=== PATIENT | male | born 1935 | race Caucasian/White ===

== ENCOUNTER 2018-02-24 17:26 | Inpatient (IN) ==
[2018-02-24] MEDS ORDERED: SODIUM CHLORIDE 0.9% 500 ML IV STA (18:12)
[2018-02-24 18:29] LABS: Basophils % 0.3 % (0.0-0.8); Eosinophils % 0.1 % (0.00-10.9); Hematocrit 32.2 VOL% (42.0-52.0); Hemoglobin 10.3 GM/DL (14.0-18.0); Immature Granulocytes % 0.5 %; Immature Granulocytes Absolute 0.07 #; Lymphocytes # 0.5 10*3/uL (1.4-4.0); Lymphocytes % 3.6 % (21.2-54.2); Mean Corpuscular Hemoglobin 31 PG (27-34); Mean Corpuscular Volume 97.9 FL (87-102); Mean Platelet Volume 10.1 FL (9.6-12.0); Monocytes # 0.5 10*3/uL (0.11-0.8); Neutrophils # 11.9 10*3/uL (1.4-7.4); Neutrophils % 91.5 % (38.7-73.9); Platelet Count 275 T/CUMM (130-400); Red Blood Count 3.29 MC/CUMM (3.8-5.5); Red Cell Distribution Width 13.9 % (9.3-17.3)
[2018-02-24 18:45] LABS: INR 1.1; PT Patient Result 11.1 SECS
[2018-02-24 18:58] LABS: Alanine Aminotransferase 11 U/L (16-61); Albumin 3.5 G/DL (3.4-5.0); Alkaline Phosphatase 79 U/L (45-117); Aspartate Amino Transferase 26 U/L (0-37); Blood Urea Nitrogen 36 MG/DL (7-18); Calcium 8.9 MG/DL (8.5-10.1); Glucose 121 MG/DL (74-106); Osmolality,Calculated 291.1 MOS/KG (273-304); Potassium 4.5 MMOL/L (3.5-5.1); Sodium 142 MMOL/L (136-145); Total Protein 7.1 G/DL (6.4-8.3); Troponin I Only < 0.015 NG/ML (0.00-0.045)
[2018-02-24] MEDS ORDERED: MAGNESIUM SULF RIDER 2 GM in PREMIX 1 EACH IV STA (19:04)
[2018-02-24 19:08] LABS: Apearance,Urine CLOUDY (Clear); Bacteria,Urine Moderate /HPF (Few); Bilirubin,Urine Negative (Negative); Blood, Urine Moderate mg/dL (Negative); Glucose,Urine (UA) Negative (Negative); Ketones,Urine 20 mg/dL (Negative); Nitrite,Urine Negative (Negative); Protein,Urine 100 MG/DL; RBC,Urine 14 /HPF (0-4); Urine Color Yellow (Yellow); Urine Specific Gravity 1.016 (1.001-1.035); WBC,Urine 704 /HPF (0-6)
[2018-02-24] MEDS ORDERED: cefTRIAXone 1,000 MG in SODIUM CHLORIDE 0.9% 100 ML IV STA (19:12)
[2018-02-24] MEDS ORDERED: MAGNESIUM SULF RIDER 50 ML IV ONE (19:13)
[2018-02-24 19:22] LABS: Ammonia 13 UMOL/L (11-32)
[2018-02-24] MEDS ORDERED: cefTRIAXone 1,000 MG VIAL ONE (19:52)
[2018-02-24] MEDS ORDERED: ONDANSETRON 4 MG/2 ML VIAL IV PRN (20:24)
[2018-02-24] MEDS ORDERED: ACETAMINOPHEN 325 MG TABLET PO PRN (20:24)
[2018-02-24] MEDS ORDERED: GLUCAGON 1 MG VIAL IM PRN (20:24)
[2018-02-24] MEDS ORDERED: DEXTROSE 50% 25 GM/50 ML VIAL IV PRN (20:24)
[2018-02-24] MEDS ORDERED: ZIPRASIDONE 20 MG/1 ML VIAL IM ONE (20:29)
[2018-02-24 21:42] LABS: Anisocytosis 1+; Band Neutrophils 14 % (0-10); Eosinophils 1 % (0-10); Lymphocytes 5 % (20-55); Poikilocytosis 1+; Segmented Neutrophils 76 % (50-85); Total Cells Counted 100
[2018-02-24] MEDS: SODIUM CHLORIDE 0.45% 1,000 ML IV SCH (22:30)
[2018-02-24] MEDS: INSULIN REGULAR 100 UNIT/ML SUBCUT SCH (22:37)
[2018-02-24] MEDS: ENOXAPARIN 40 MG/0.4 ML SYRINGE SUBCUT SCH (22:45)
[2018-02-25] MEDS ORDERED: HALOPERIDOL 5 MG/ML AMP IV ONE (02:30)
[2018-02-25] MEDS ORDERED: ZIPRASIDONE 20 MG/1 ML VIAL IM PRN (03:00)
[2018-02-25 05:46] LABS: Basophils % 0.3 % (0.0-0.8); Hemoglobin 9.1 GM/DL (14.0-18.0); Immature Granulocytes % 0.3 %; Immature Granulocytes Absolute 0.02 #; Lymphocytes # 0.5 10*3/uL (1.4-4.0); Lymphocytes % 7.1 % (21.2-54.2); Mean Corpuscular HGB Conc 32.5 GM/DL (32-36); Mean Corpuscular Hemoglobin 31 PG (27-34); Mean Corpuscular Volume 94.9 FL (87-102); Mean Platelet Volume 10.6 FL (9.6-12.0); Monocytes # 0.4 10*3/uL (0.11-0.8); Monocytes % 6.1 % (1.7-12.7); Neutrophils # 6.2 10*3/uL (1.4-7.4); Neutrophils % 86.2 % (38.7-73.9); Platelet Count 258 T/CUMM (130-400); Red Blood Count 2.95 MC/CUMM (3.8-5.5); White Blood Count 7.2 T/CUMM (4-12)
[2018-02-25] MEDS: SODIUM CHLORIDE 0.45% 1,000 ML IV SCH ×3 (06:03→22:12)
[2018-02-25 06:18] LABS: Calcium 8.2 MG/DL (8.5-10.1); Potassium 3.9 MMOL/L (3.5-5.1)
[2018-02-25] MEDS ORDERED: NITROGLYCERIN SL 0.4 MG TABLET SL PRN (07:55)
[2018-02-25] MEDS: CARBIDOPA/LEVODOPA 25-100 MG TABLET PO SCH ×3 (08:58→17:59)
[2018-02-25] MEDS: INSULIN REGULAR 100 UNIT/ML SUBCUT SCH ×4 (08:58→21:00)
[2018-02-25] MEDS: CHOLECALCIFEROL 1,000 UNIT TABLET PO SCH (08:59)
[2018-02-25] MEDS: ASPIRIN EC 81 MG TABLET PO SCH (08:59)
[2018-02-25] MEDS: MEMANTINE 10 MG TABLET PO SCH ×2 (08:59→20:54)
[2018-02-25] MEDS: PANTOPRAZOLE 40 MG TABLET PO SCH ×2 (08:59→20:54)
[2018-02-25] MEDS: FINASTERIDE 5 MG TABLET PO SCH (08:59)
[2018-02-25] MEDS: amLODIPine 5 MG TABLET PO SCH ×2 (08:59→20:54)
[2018-02-25] MEDS: VANCOMYCIN INJ 1,000 MG in SODIUM CHLORIDE 0.9% 250 ML IV SCH (12:30)
[2018-02-25] MEDS ORDERED: cefTRIAXone 1,000 MG in SYRINGE 1 EACH IV SCH (20:00)
[2018-02-25] MEDS: DONEPEZIL 10 MG TABLET PO SCH (20:54)
[2018-02-25] MEDS: MELATONIN 3 MG TABLET PO SCH (20:54)
[2018-02-25] MEDS: ATORVASTATIN 20 MG TABLET PO SCH (20:54)
[2018-02-25] MEDS: LISINOPRIL 10 MG TABLET PO SCH (20:54)
[2018-02-25] MEDS: ENOXAPARIN 40 MG/0.4 ML SYRINGE SUBCUT SCH (20:59)
[2018-02-26 06:11] LABS: Basophils % 0.4 % (0.0-0.8); Eosinophils # 0.1 10*3/uL (0.0-0.87); Hematocrit 27.7 VOL% (42.0-52.0); Hemoglobin 8.9 GM/DL (14.0-18.0); Immature Granulocytes % 0.6 %; Immature Granulocytes Absolute 0.04 #; Lymphocytes % 14.2 % (21.2-54.2); Mean Corpuscular HGB Conc 32.1 GM/DL (32-36); Mean Corpuscular Hemoglobin 31 PG (27-34); Mean Corpuscular Volume 95.5 FL (87-102); Mean Platelet Volume 9.9 FL (9.6-12.0); Monocytes # 0.8 10*3/uL (0.11-0.8); Monocytes % 12.3 % (1.7-12.7); Neutrophils # 4.9 10*3/uL (1.4-7.4); Neutrophils % 71.5 % (38.7-73.9); Platelet Count 209 T/CUMM (130-400); Red Cell Distribution Width 13.6 % (9.3-17.3); White Blood Count 6.8 T/CUMM (4-12)
[2018-02-26 06:36] LABS: Calcium 8.1 MG/DL (8.5-10.1); Osmolality,Calculated 283.4 MOS/KG (273-304); Potassium 4.6 MMOL/L (3.5-5.1)
[2018-02-26 06:37] LABS: Band Neutrophils 19 % (0-10); Lymphocytes 12 % (20-55); Segmented Neutrophils 66 % (50-85); Total Cells Counted 100
[2018-02-26 06:38] LABS: Acanthocytes 1+; Anisocytosis 1+; Poikilocytosis 2+
[2018-02-26] MEDS: INSULIN REGULAR 100 UNIT/ML SUBCUT SCH ×4 (07:33→21:38)
[2018-02-26] MEDS: SODIUM CHLORIDE 0.45% 1,000 ML IV SCH (08:12)
[2018-02-26] MEDS: PANTOPRAZOLE 40 MG TABLET PO SCH ×2 (09:41→21:38)
[2018-02-26] MEDS: amLODIPine 5 MG TABLET PO SCH ×2 (09:41→21:38)
[2018-02-26] MEDS: CARBIDOPA/LEVODOPA 25-100 MG TABLET PO SCH ×3 (09:41→17:48)
[2018-02-26] MEDS: ASPIRIN EC 81 MG TABLET PO SCH (09:41)
[2018-02-26] MEDS: CHOLECALCIFEROL 1,000 UNIT TABLET PO SCH (09:41)
[2018-02-26] MEDS: FINASTERIDE 5 MG TABLET PO SCH (09:42)
[2018-02-26] MEDS: MEMANTINE 10 MG TABLET PO SCH ×2 (09:42→21:38)
[2018-02-26] MEDS: VANCOMYCIN INJ 1,000 MG in SODIUM CHLORIDE 0.9% 250 ML IV SCH (11:48)
[2018-02-26] MEDS: MELATONIN 3 MG TABLET PO SCH (21:37)
[2018-02-26] MEDS: LISINOPRIL 10 MG TABLET PO SCH (21:38)
[2018-02-26] MEDS: ENOXAPARIN 40 MG/0.4 ML SYRINGE SUBCUT SCH (21:38)
[2018-02-26] MEDS: ATORVASTATIN 20 MG TABLET PO SCH (21:38)
[2018-02-26] MEDS: DONEPEZIL 10 MG TABLET PO SCH (21:41)
[2018-02-27] MEDS: VANCOMYCIN INJ 1,000 MG in SODIUM CHLORIDE 0.9% 250 ML IV SCH (05:11)
[2018-02-27 06:24] LABS: Basophils % 0.6 % (0.0-0.8); Eosinophils # 0.2 10*3/uL (0.0-0.87); Eosinophils % 3.1 % (0.00-10.9); Hematocrit 27.8 VOL% (42.0-52.0); Immature Granulocytes % 0.2 %; Immature Granulocytes Absolute 0.01 #; Lymphocytes % 19.9 % (21.2-54.2); Mean Corpuscular HGB Conc 32.4 GM/DL (32-36); Mean Corpuscular Hemoglobin 31 PG (27-34); Mean Corpuscular Volume 94.6 FL (87-102); Mean Platelet Volume 10.7 FL (9.6-12.0); Monocytes # 0.7 10*3/uL (0.11-0.8); Monocytes % 12.7 % (1.7-12.7); Neutrophils # 3.3 10*3/uL (1.4-7.4); Neutrophils % 63.5 % (38.7-73.9); Platelet Count 229 T/CUMM (130-400); Red Blood Count 2.94 MC/CUMM (3.8-5.5); Red Cell Distribution Width 13.5 % (9.3-17.3); White Blood Count 5.1 T/CUMM (4-12)
[2018-02-27 06:27] LABS: Calcium 8.2 MG/DL (8.5-10.1); Osmolality,Calculated 286.1 MOS/KG (273-304); Potassium 3.6 MMOL/L (3.5-5.1)
[2018-02-27] MEDS: INSULIN REGULAR 100 UNIT/ML SUBCUT SCH ×4 (07:58→20:27)
[2018-02-27] MEDS: PANTOPRAZOLE 40 MG TABLET PO SCH ×2 (09:16→20:29)
[2018-02-27] MEDS: amLODIPine 5 MG TABLET PO SCH ×2 (09:16→20:29)
[2018-02-27] MEDS: MEMANTINE 10 MG TABLET PO SCH ×2 (09:16→20:29)
[2018-02-27] MEDS: ASPIRIN EC 81 MG TABLET PO SCH (09:16)
[2018-02-27] MEDS: CARBIDOPA/LEVODOPA 25-100 MG TABLET PO SCH ×3 (09:16→18:06)
[2018-02-27] MEDS: CHOLECALCIFEROL 1,000 UNIT TABLET PO SCH (09:16)
[2018-02-27] MEDS: FINASTERIDE 5 MG TABLET PO SCH (09:16)
[2018-02-27] MEDS: DONEPEZIL 10 MG TABLET PO SCH (20:29)
[2018-02-27] MEDS: LISINOPRIL 10 MG TABLET PO SCH (20:29)
[2018-02-27] MEDS: ENOXAPARIN 40 MG/0.4 ML SYRINGE SUBCUT SCH (20:29)
[2018-02-27] MEDS: MELATONIN 3 MG TABLET PO SCH (20:29)
[2018-02-27] MEDS: ATORVASTATIN 20 MG TABLET PO SCH (20:29)
[2018-02-28] MEDS: VANCOMYCIN INJ 1,000 MG in SODIUM CHLORIDE 0.9% 250 ML IV SCH ×2 (00:29→17:38)
[2018-02-28 06:17] LABS: Calcium 8.2 MG/DL (8.5-10.1); Osmolality,Calculated 294.4 MOS/KG (273-304); Potassium 3.6 MMOL/L (3.5-5.1)
[2018-02-28] MEDS: INSULIN REGULAR 100 UNIT/ML SUBCUT SCH ×4 (07:51→20:50)
[2018-02-28] MEDS: amLODIPine 5 MG TABLET PO SCH ×2 (09:11→20:50)
[2018-02-28] MEDS: CARBIDOPA/LEVODOPA 25-100 MG TABLET PO SCH ×3 (09:11→16:46)
[2018-02-28] MEDS: CHOLECALCIFEROL 1,000 UNIT TABLET PO SCH (09:11)
[2018-02-28] MEDS: FINASTERIDE 5 MG TABLET PO SCH (09:12)
[2018-02-28] MEDS: ASPIRIN EC 81 MG TABLET PO SCH (09:12)
[2018-02-28] MEDS: PANTOPRAZOLE 40 MG TABLET PO SCH ×2 (09:12→20:49)
[2018-02-28] MEDS: MEMANTINE 10 MG TABLET PO SCH ×2 (09:12→20:49)
[2018-02-28] MEDS ORDERED: ZIPRASIDONE 20 MG/1 ML VIAL IM PRN (15:43)
[2018-02-28] MEDS: DONEPEZIL 10 MG TABLET PO SCH (20:49)
[2018-02-28] MEDS: ENOXAPARIN 40 MG/0.4 ML SYRINGE SUBCUT SCH (20:49)
[2018-02-28] MEDS: MELATONIN 3 MG TABLET PO SCH (20:49)
[2018-02-28] MEDS: ATORVASTATIN 20 MG TABLET PO SCH (20:49)
[2018-02-28] MEDS: LISINOPRIL 10 MG TABLET PO SCH (20:50)
[2018-03-01 04:26] LABS: Basophils % 0.7 % (0.0-0.8); Eosinophils # 0.2 10*3/uL (0.0-0.87); Hematocrit 25.7 VOL% (42.0-52.0); Hemoglobin 8.4 GM/DL (14.0-18.0); Lymphocytes # 1.4 10*3/uL (1.4-4.0); Mean Corpuscular HGB Conc 32.7 GM/DL (32-36); Mean Corpuscular Hemoglobin 31 PG (27-34); Mean Corpuscular Volume 95.2 FL (87-102); Mean Platelet Volume 10.6 FL (9.6-12.0); Monocytes # 0.6 10*3/uL (0.11-0.8); Monocytes % 12.8 % (1.7-12.7); Neutrophils # 2.3 10*3/uL (1.4-7.4); Neutrophils % 51.5 % (38.7-73.9); Platelet Count 250 T/CUMM (130-400); Red Cell Distribution Width 13.6 % (9.3-17.3); White Blood Count 4.5 T/CUMM (4-12)
[2018-03-01 04:58] LABS: Calcium 7.9 MG/DL (8.5-10.1); Osmolality,Calculated 300.1 MOS/KG (273-304); Potassium 3.5 MMOL/L (3.5-5.1)
[2018-03-01] MEDS: INSULIN REGULAR 100 UNIT/ML SUBCUT SCH ×4 (08:56→20:55)
[2018-03-01] MEDS: CHOLECALCIFEROL 1,000 UNIT TABLET PO SCH (10:31)
[2018-03-01] MEDS: ASPIRIN EC 81 MG TABLET PO SCH (10:31)
[2018-03-01] MEDS: amLODIPine 5 MG TABLET PO SCH ×2 (10:31→20:54)
[2018-03-01] MEDS: CARBIDOPA/LEVODOPA 25-100 MG TABLET PO SCH ×3 (10:31→18:43)
[2018-03-01] MEDS: MEMANTINE 10 MG TABLET PO SCH ×2 (10:31→20:54)
[2018-03-01] MEDS: FINASTERIDE 5 MG TABLET PO SCH (10:31)
[2018-03-01] MEDS: PANTOPRAZOLE 40 MG TABLET PO SCH ×2 (10:31→20:54)
[2018-03-01] MEDS: SODIUM CHLOR 0.45% KCL 20 MEQ 20 MEQ/1,000 ML BAG IV SCH (11:00)
[2018-03-01] MEDS: VANCOMYCIN INJ 1,000 MG in SODIUM CHLORIDE 0.9% 250 ML IV SCH (15:27)
[2018-03-01] MEDS: ENOXAPARIN 40 MG/0.4 ML SYRINGE SUBCUT SCH (20:54)
[2018-03-01] MEDS: DONEPEZIL 10 MG TABLET PO SCH (20:54)
[2018-03-01] MEDS: MELATONIN 3 MG TABLET PO SCH (20:54)
[2018-03-01] MEDS: LISINOPRIL 10 MG TABLET PO SCH (20:54)
[2018-03-01] MEDS: ATORVASTATIN 20 MG TABLET PO SCH (20:54)
[2018-03-02 06:02] LABS: Basophils % 0.4 % (0.0-0.8); Eosinophils # 0.1 10*3/uL (0.0-0.87); Eosinophils % 2.9 % (0.00-10.9); Hemoglobin 8.3 GM/DL (14.0-18.0); Immature Granulocytes % 0.6 %; Immature Granulocytes Absolute 0.03 #; Lymphocytes # 1.4 10*3/uL (1.4-4.0); Lymphocytes % 29.3 % (21.2-54.2); Mean Corpuscular HGB Conc 31.9 GM/DL (32-36); Mean Corpuscular Hemoglobin 30 PG (27-34); Mean Corpuscular Volume 94.5 FL (87-102); Mean Platelet Volume 10.7 FL (9.6-12.0); Monocytes # 0.5 10*3/uL (0.11-0.8); Monocytes % 9.3 % (1.7-12.7); Neutrophils # 2.8 10*3/uL (1.4-7.4); Neutrophils % 57.5 % (38.7-73.9); Platelet Count 258 T/CUMM (130-400); Red Blood Count 2.75 MC/CUMM (3.8-5.5); Red Cell Distribution Width 13.7 % (9.3-17.3); White Blood Count 4.8 T/CUMM (4-12)
[2018-03-02 06:23] LABS: Calcium 7.9 MG/DL (8.5-10.1); Osmolality,Calculated 294.6 MOS/KG (273-304); Potassium 3.6 MMOL/L (3.5-5.1)
[2018-03-02] MEDS: VANCOMYCIN INJ 1,000 MG in SODIUM CHLORIDE 0.9% 250 ML IV SCH (06:24)
[2018-03-02] MEDS: SODIUM CHLOR 0.45% KCL 20 MEQ 20 MEQ/1,000 ML BAG IV SCH (07:01)
[2018-03-02] MEDS: INSULIN REGULAR 100 UNIT/ML SUBCUT SCH ×4 (08:57→20:48)
[2018-03-02] MEDS: CHOLECALCIFEROL 1,000 UNIT TABLET PO SCH (10:42)
[2018-03-02] MEDS: PANTOPRAZOLE 40 MG TABLET PO SCH ×2 (10:42→20:48)
[2018-03-02] MEDS: ASPIRIN EC 81 MG TABLET PO SCH (10:42)
[2018-03-02] MEDS: MEMANTINE 10 MG TABLET PO SCH ×2 (10:42→20:48)
[2018-03-02] MEDS: amLODIPine 5 MG TABLET PO SCH ×2 (10:42→20:49)
[2018-03-02] MEDS: FINASTERIDE 5 MG TABLET PO SCH (10:42)
[2018-03-02] MEDS: CARBIDOPA/LEVODOPA 25-100 MG TABLET PO SCH ×3 (10:42→18:09)
[2018-03-02] MEDS: POTASSIUM CHLORIDE INJ 20 MEQ, SODIUM CHLORIDE 23.4% CONC INJ 38.5 MEQ in STERILE WATER... IV SCH ×3 (14:21→21:02)
[2018-03-02] MEDS ORDERED: POLYETHYLENE GLYCOL POWDER 17 GM PACK PO PRN (17:19)
[2018-03-02] MEDS: LISINOPRIL 10 MG TABLET PO SCH (20:47)
[2018-03-02] MEDS: ENOXAPARIN 40 MG/0.4 ML SYRINGE SUBCUT SCH (20:48)
[2018-03-02] MEDS: ATORVASTATIN 20 MG TABLET PO SCH (20:48)
[2018-03-02] MEDS: DONEPEZIL 10 MG TABLET PO SCH (20:48)
[2018-03-02] MEDS: MELATONIN 3 MG TABLET PO SCH (20:49)
[2018-03-03] MEDS: VANCOMYCIN INJ 1,000 MG in SODIUM CHLORIDE 0.9% 250 ML IV SCH (00:22)
[2018-03-03 05:55] LABS: Calcium 8.1 MG/DL (8.5-10.1)
[2018-03-03] MEDS: POTASSIUM CHLORIDE INJ 20 MEQ, SODIUM CHLORIDE 23.4% CONC INJ 38.5 MEQ in STERILE WATER... IV SCH (06:54)
[2018-03-03] MEDS: INSULIN REGULAR 100 UNIT/ML SUBCUT SCH ×3 (09:16→16:51)
[2018-03-03] MEDS: ASPIRIN EC 81 MG TABLET PO SCH (09:30)
[2018-03-03] MEDS: CARBIDOPA/LEVODOPA 25-100 MG TABLET PO SCH ×2 (09:30→14:39)
[2018-03-03] MEDS: FINASTERIDE 5 MG TABLET PO SCH (09:30)
[2018-03-03] MEDS: MEMANTINE 10 MG TABLET PO SCH (09:30)
[2018-03-03] MEDS: CHOLECALCIFEROL 1,000 UNIT TABLET PO SCH (09:30)
[2018-03-03] MEDS: PANTOPRAZOLE 40 MG TABLET PO SCH (09:30)
[2018-03-03] MEDS: amLODIPine 5 MG TABLET PO SCH (09:30)
[2018-03-03 17:51] VITALS: BP 128/71
[2018-03-03] MEDS ORDERED: VANCOMYCIN INJ 1,250 MG in SODIUM CHLORIDE 0.9% 250 ML IV SCH (18:00)
== END 2018-03-03 17:25 | disposition home health service (06) | DRG 872 ==
LOC: EDUNIT# → EDBD → N.ED 17:26 → SUATTDRO 20:24 → N.EDINP 20:24 → N.3E 20:57
PROVIDERS: ADMIT Internal Medicine; ATTEND Internal Medicine

== ENCOUNTER 2018-03-24 07:05 | Inpatient (IN) ==
[2018-03-24] MEDS ORDERED: LEVOFLOXACIN INJ 100 ML IV ONE (08:12)
[2018-03-24 08:17] LABS: Basophils % 0.3 % (0.0-0.8); Eosinophils # 0.2 10*3/uL (0.0-0.87); Eosinophils % 2.5 % (0.00-10.9); Hematocrit 27.5 VOL% (42.0-52.0); Immature Granulocytes % 0.4 %; Immature Granulocytes Absolute 0.04 #; Lymphocytes # 0.6 10*3/uL (1.4-4.0); Mean Corpuscular HGB Conc 32.7 GM/DL (32-36); Mean Corpuscular Hemoglobin 30 PG (27-34); Mean Corpuscular Volume 92.6 FL (87-102); Mean Platelet Volume 10.8 FL (9.6-12.0); Monocytes # 0.7 10*3/uL (0.11-0.8); Monocytes % 7.4 % (1.7-12.7); Neutrophils # 8.2 10*3/uL (1.4-7.4); Neutrophils % 83.4 % (38.7-73.9); Platelet Count 220 T/CUMM (130-400); Red Blood Count 2.97 MC/CUMM (3.8-5.5); Red Cell Distribution Width 14.6 % (9.3-17.3); White Blood Count 9.8 T/CUMM (4-12)
[2018-03-24 08:40] LABS: Lactic Acid 2.3 MMOL/L (0.4-2.0)
[2018-03-24] MEDS ORDERED: SODIUM CHLORIDE 0.9% 1,000 ML IV STA (08:50)
[2018-03-24] MEDS ORDERED: LEVOFLOXACIN INJ 500 MG in PREMIX 1 EACH IV STA (08:50)
[2018-03-24 08:53] LABS: Alanine Aminotransferase 17 U/L (16-61); Albumin 2.4 G/DL (3.4-5.0); Alkaline Phosphatase 68 U/L (45-117); Aspartate Amino Transferase 15 U/L (0-37); Blood Urea Nitrogen 22 MG/DL (7-18); Calcium 8.7 MG/DL (8.5-10.1); Glucose 230 MG/DL (74-106); Osmolality,Calculated 286.5 MOS/KG (273-304); Potassium 3.5 MMOL/L (3.5-5.1); Sodium 139 MMOL/L (136-145); Total Protein 6.6 G/DL (6.4-8.3); Troponin I Only < 0.015 NG/ML (0.00-0.045)
[2018-03-24] MEDS ORDERED: ACETAMINOPHEN 325 MG TABLET PO PRN (10:00)
[2018-03-24] MEDS ORDERED: ONDANSETRON 4 MG/2 ML VIAL IV PRN (10:00)
[2018-03-24 10:27] LABS: Amorphous Crystals,Urine Few /HPF (Few); Apearance,Urine Slightly Hazy (Clear); Bacteria,Urine Occasional /HPF (Few); Bilirubin,Urine Negative (Negative); Blood, Urine Negative (Negative); Glucose,Urine (UA) 50 mg/dL (Negative); Ketones,Urine 5 mg/dL (Negative); Mucus,Urine Occasional /LPF (Occasional); Nitrite,Urine Negative (Negative); Protein,Urine 100 MG/DL; RBC,Urine 1 /HPF (0-4); Squamous Epithelial Cell,Urine Occasional /HPF (0-10); Urine Color Yellow (Yellow); WBC,Urine 1 /HPF (0-6)
[2018-03-24] MEDS ORDERED: DEXTROSE 50% 25 GM/50 ML VIAL IV PRN (10:36)
[2018-03-24] MEDS ORDERED: GLUCAGON 1 MG VIAL IM PRN (10:36)
[2018-03-24] MEDS ORDERED: NITROGLYCERIN SL 0.4 MG TABLET SL PRN (10:36)
[2018-03-24] MEDS: INSULIN LISPRO 100 UNIT/ML SUBCUT SCH ×3 (12:19→20:18)
[2018-03-24] MEDS: CARBIDOPA/LEVODOPA 25-100 MG TABLET PO SCH ×2 (12:39→17:00)
[2018-03-24] MEDS: ALBUTEROL/IPRATROPIUM 3 ML NEB RESP TX SCH ×3 (14:44→19:21)
[2018-03-24] MEDS ORDERED: MAGNESIUM CITRATE 300 ML BOTTLE PO ONE (16:28)
[2018-03-24] MEDS: PANTOPRAZOLE 40 MG TABLET PO SCH (20:19)
[2018-03-24] MEDS: LISINOPRIL 10 MG TABLET PO SCH (20:19)
[2018-03-24] MEDS: MEMANTINE 10 MG TABLET PO SCH (20:19)
[2018-03-24] MEDS: DONEPEZIL 10 MG TABLET PO SCH (20:19)
[2018-03-24] MEDS: CARVEDILOL 6.25 MG TABLET PO SCH (20:20)
[2018-03-24] MEDS ORDERED: MELATONIN 3 MG TABLET PO SCH (21:00)
[2018-03-25] MEDS: ALBUTEROL/IPRATROPIUM 3 ML NEB RESP TX SCH ×6 (00:47→19:10)
[2018-03-25 07:50] LABS: Basophils % 0.4 % (0.0-0.8); Eosinophils # 0.2 10*3/uL (0.0-0.87); Eosinophils % 2.2 % (0.00-10.9); Hematocrit 27.2 VOL% (42.0-52.0); Hemoglobin 8.9 GM/DL (14.0-18.0); Immature Granulocytes % 0.5 %; Immature Granulocytes Absolute 0.05 #; Lymphocytes # 0.6 10*3/uL (1.4-4.0); Lymphocytes % 5.7 % (21.2-54.2); Mean Corpuscular HGB Conc 32.7 GM/DL (32-36); Mean Corpuscular Hemoglobin 31 PG (27-34); Mean Corpuscular Volume 93.2 FL (87-102); Mean Platelet Volume 11.2 FL (9.6-12.0); Monocytes # 0.8 10*3/uL (0.11-0.8); Neutrophils # 8.1 10*3/uL (1.4-7.4); Neutrophils % 83.2 % (38.7-73.9); Platelet Count 275 T/CUMM (130-400); Red Blood Count 2.92 MC/CUMM (3.8-5.5); White Blood Count 9.7 T/CUMM (4-12)
[2018-03-25 08:15] LABS: Calcium 8.2 MG/DL (8.5-10.1); Osmolality,Calculated 285.3 MOS/KG (273-304); Potassium 3.7 MMOL/L (3.5-5.1)
[2018-03-25 08:16] LABS: Eosinophils 4 % (0-10); Hypochromasia 1+; Lymphocytes 8 % (20-55); Segmented Neutrophils 81 % (50-85); Total Cells Counted 100
[2018-03-25 08:17] LABS: Acanthocytes Few; Microcytosis 1+; Ovalocytes Slight; Platelet Estimate Normal
[2018-03-25] MEDS: INSULIN LISPRO 100 UNIT/ML SUBCUT SCH ×4 (08:53→20:01)
[2018-03-25] MEDS ORDERED: LEVOFLOXACIN INJ 750 MG in PREMIX 1 EACH IV SCH (09:00)
[2018-03-25] MEDS ORDERED: PANTOPRAZOLE 40 MG TABLET PO SCH (09:00)
[2018-03-25] MEDS: CLOPIDOGREL 75 MG TABLET PO SCH (09:01)
[2018-03-25] MEDS: ASPIRIN EC 81 MG TABLET PO SCH (09:01)
[2018-03-25] MEDS: LISINOPRIL 10 MG TABLET PO SCH ×2 (09:01→20:03)
[2018-03-25] MEDS: FINASTERIDE 5 MG TABLET PO SCH (09:01)
[2018-03-25] MEDS: CARBIDOPA/LEVODOPA 25-100 MG TABLET PO SCH ×3 (09:01→17:35)
[2018-03-25] MEDS: FERROUS SULFATE 325 MG TABLET PO SCH (09:01)
[2018-03-25] MEDS: CHOLECALCIFEROL 1,000 UNIT TABLET PO SCH (09:01)
[2018-03-25] MEDS: MEMANTINE 10 MG TABLET PO SCH ×2 (09:01→20:03)
[2018-03-25] MEDS: CARVEDILOL 6.25 MG TABLET PO SCH ×2 (09:01→20:03)
[2018-03-25] MEDS: PANTOPRAZOLE 40 MG TABLET PO SCH ×2 (09:03→20:03)
[2018-03-25] MEDS: POLYETHYLENE GLYCOL POWDER 17 GM PACK PO SCH (09:03)
[2018-03-25] MEDS: DONEPEZIL 10 MG TABLET PO SCH (20:03)
[2018-03-26] MEDS: ALBUTEROL/IPRATROPIUM 3 ML NEB RESP TX SCH ×5 (00:17→14:52)
[2018-03-26 07:45] LABS: Basophils % 0.3 % (0.0-0.8); Eosinophils # 0.1 10*3/uL (0.0-0.87); Eosinophils % 0.5 % (0.00-10.9); Hematocrit 26.4 VOL% (42.0-52.0); Hemoglobin 8.6 GM/DL (14.0-18.0); Immature Granulocytes % 0.5 %; Immature Granulocytes Absolute 0.06 #; Lymphocytes # 0.7 10*3/uL (1.4-4.0); Lymphocytes % 5.9 % (21.2-54.2); Mean Corpuscular HGB Conc 32.6 GM/DL (32-36); Mean Corpuscular Hemoglobin 30 PG (27-34); Mean Platelet Volume 11.9 FL (9.6-12.0); Monocytes # 0.9 10*3/uL (0.11-0.8); Monocytes % 7.9 % (1.7-12.7); Neutrophils # 9.4 10*3/uL (1.4-7.4); Neutrophils % 84.9 % (38.7-73.9); Platelet Count 282 T/CUMM (130-400); Red Blood Count 2.87 MC/CUMM (3.8-5.5); Red Cell Distribution Width 15.1 % (9.3-17.3); White Blood Count 11.1 T/CUMM (4-12)
[2018-03-26 08:10] LABS: Calcium 8.7 MG/DL (8.5-10.1); Osmolality,Calculated 289.3 MOS/KG (273-304); Potassium 3.9 MMOL/L (3.5-5.1)
[2018-03-26 08:17] LABS: Hypochromasia 1+; Microcytosis 1+; Ovalocytes Slight
[2018-03-26 08:18] LABS: Platelet Estimate Normal
[2018-03-26] MEDS: INSULIN LISPRO 100 UNIT/ML SUBCUT SCH ×3 (08:49→16:06)
[2018-03-26] MEDS: CARBIDOPA/LEVODOPA 25-100 MG TABLET PO SCH ×3 (10:29→16:06)
[2018-03-26] MEDS: PANTOPRAZOLE 40 MG TABLET PO SCH (10:34)
[2018-03-26] MEDS: CHOLECALCIFEROL 1,000 UNIT TABLET PO SCH (10:34)
[2018-03-26] MEDS: CLOPIDOGREL 75 MG TABLET PO SCH (10:35)
[2018-03-26] MEDS: ASPIRIN EC 81 MG TABLET PO SCH (10:35)
[2018-03-26] MEDS: CARVEDILOL 6.25 MG TABLET PO SCH (10:35)
[2018-03-26] MEDS: FERROUS SULFATE 325 MG TABLET PO SCH (10:35)
[2018-03-26] MEDS: FINASTERIDE 5 MG TABLET PO SCH (10:35)
[2018-03-26] MEDS: MEMANTINE 10 MG TABLET PO SCH (10:35)
[2018-03-26] MEDS: LISINOPRIL 10 MG TABLET PO SCH (10:35)
[2018-03-26] MEDS: POLYETHYLENE GLYCOL POWDER 17 GM PACK PO SCH (10:40)
[2018-03-26] MEDS ORDERED: FUROSEMIDE 20 MG/2 ML VIAL IV ONE (11:31)
[2018-03-26] MEDS ORDERED: SODIUM CHLORIDE 0.65% NASAL SPRAY 45 ML BOTTLE BOTH NARES PRN (11:32)
[2018-03-26 16:26] VITALS: BP 148/66
== END 2018-03-26 16:45 | disposition home health service (06) | DRG 884 ==
LOC: EDUNIT# → EDBD → N.ED 07:05 → N.EDINP 08:58 → N.5E 10:11
PROVIDERS: ADMIT Internal Medicine; ATTEND Internal Medicine

== ENCOUNTER 2018-03-27 17:13 | Inpatient (IN) ==
[2018-03-27] MEDS ORDERED: SODIUM CHLORIDE 0.9% 1,000 ML IV STA (18:27)
[2018-03-27 18:42] LABS: Basophils % 0.2 % (0.0-0.8); Eosinophils # 0.1 10*3/uL (0.0-0.87); Eosinophils % 1.3 % (0.00-10.9); Hematocrit 23.9 VOL% (42.0-52.0); Hemoglobin 7.9 GM/DL (14.0-18.0); Immature Granulocytes % 0.5 %; Immature Granulocytes Absolute 0.05 #; Lymphocytes # 0.7 10*3/uL (1.4-4.0); Lymphocytes % 6.5 % (21.2-54.2); Mean Corpuscular HGB Conc 33.1 GM/DL (32-36); Mean Corpuscular Hemoglobin 30 PG (27-34); Mean Corpuscular Volume 91.2 FL (87-102); Mean Platelet Volume 11.3 FL (9.6-12.0); Monocytes # 0.8 10*3/uL (0.11-0.8); Monocytes % 6.9 % (1.7-12.7); Neutrophils # 9.2 10*3/uL (1.4-7.4); Neutrophils % 84.6 % (38.7-73.9); Platelet Count 360 T/CUMM (130-400); Red Blood Count 2.62 MC/CUMM (3.8-5.5); Red Cell Distribution Width 15.7 % (9.3-17.3); White Blood Count 10.9 T/CUMM (4-12)
[2018-03-27 18:47] LABS: VBG Base Excess 0.7 MEQ/L (0-4); VBG HCO3 25.1 MEQ/L (24-28); VBG Oxygen Saturation 98.4 %; VBG PCO2 32.6 MMHG (41-51); VBG PH 7.474
[2018-03-27] MEDS ORDERED: FUROSEMIDE 40 MG/4 ML VIAL IV STA (18:53)
[2018-03-27 19:01] LABS: Bilirubin,Total 0.5 MG/DL (0.2-1.0); Calcium 8.1 MG/DL (8.5-10.1); Osmolality,Calculated 296.8 MOS/KG (273-304); Potassium 3.8 MMOL/L (3.5-5.1); Total Protein 5.9 G/DL (6.4-8.3)
[2018-03-27 19:03] LABS: Lactic Acid 1.1 MMOL/L (0.4-2.0)
[2018-03-27 19:21] LABS: Apearance,Urine Slightly Hazy (Clear); Bilirubin,Urine Negative (Negative); Blood, Urine Negative (Negative); Glucose,Urine (UA) Negative (Negative); Ketones,Urine Negative (Negative); Mucus,Urine Occasional /LPF (Occasional); Nitrite,Urine Negative (Negative); Protein,Urine 30 MG/DL; RBC,Urine 2 /HPF (0-4); Urine Color Yellow (Yellow); Urine Specific Gravity 1.021 (1.001-1.035); Urine Urobilinogen < 2.0 EU/DL (0.2-1.0); WBC,Urine <1 /HPF (0-6)
[2018-03-27 19:39] LABS: Sedimentation Rate-Westergren 132 MM/HR (0-20)
[2018-03-27] MEDS ORDERED: NITROGLYCERIN SL 0.4 MG TABLET SL PRN (19:46)
[2018-03-27] MEDS ORDERED: DEXTROSE 50% 25 GM/50 ML VIAL IV PRN (19:59)
[2018-03-27] MEDS ORDERED: ONDANSETRON 4 MG/2 ML VIAL IV PRN (19:59)
[2018-03-27] MEDS ORDERED: ACETAMINOPHEN 325 MG TABLET PO PRN (19:59)
[2018-03-27] MEDS ORDERED: GLUCAGON 1 MG VIAL IM PRN (19:59)
[2018-03-27] MEDS ORDERED: metFORMIN 500 MG TABLET PO SCH (20:00)
[2018-03-27] MEDS ORDERED: ALBUTEROL 1.25 MG/3 ML NEB RESP TX PRN (20:25)
[2018-03-27] MEDS ORDERED: SODIUM CHLORIDE 0.9% 1,000 ML IV PRN (20:50)
[2018-03-27] MEDS ORDERED: LEVOFLOXACIN INJ 750 MG in PREMIX 1 EACH IV SCH (21:00)
[2018-03-27] MEDS ORDERED: ENOXAPARIN 30 MG/0.3 ML SYRINGE SUBCUT SCH (21:00)
[2018-03-27] MEDS ORDERED: DONEPEZIL 10 MG TABLET PO SCH (21:00)
[2018-03-27] MEDS: PANTOPRAZOLE 40 MG TABLET PO SCH (21:28)
[2018-03-27] MEDS: MEMANTINE 10 MG TABLET PO SCH (21:28)
[2018-03-27] MEDS: LISINOPRIL 10 MG TABLET PO SCH (21:28)
[2018-03-27] MEDS: INSULIN LISPRO 100 UNIT/ML SUBCUT SCH (21:28)
[2018-03-27] MEDS: MELATONIN 3 MG TABLET PO SCH (21:28)
[2018-03-27] MEDS: CARVEDILOL 6.25 MG TABLET PO SCH (21:28)
[2018-03-27] MEDS ORDERED: FUROSEMIDE 40 MG/4 ML VIAL IV ONE (21:30)
[2018-03-27] MEDS: LEVOFLOXACIN INJ 750 MG in PREMIX 1 EACH IV SCH (22:09)
[2018-03-27] MEDS: PIPERACILLIN/TAZOBACTAM 3,375 MG in SODIUM CHLORIDE 0.9% 100 ML IV SCH (23:25)
[2018-03-28] MEDS: ALBUTEROL/IPRATROPIUM 3 ML NEB RESP TX SCH ×4 (00:45→20:38)
[2018-03-28] MEDS: PIPERACILLIN/TAZOBACTAM 3,375 MG in SODIUM CHLORIDE 0.9% 100 ML IV SCH (05:41)
[2018-03-28] MEDS ORDERED: FUROSEMIDE 40 MG/4 ML VIAL IV ONE (06:00)
[2018-03-28 07:33] LABS: Basophils % 0.1 % (0.0-0.8); Eosinophils # 0.4 10*3/uL (0.0-0.87); Eosinophils % 3.3 % (0.00-10.9); Hemoglobin 9.5 GM/DL (14.0-18.0); Immature Granulocytes % 0.7 %; Immature Granulocytes Absolute 0.08 #; Lymphocytes # 0.7 10*3/uL (1.4-4.0); Lymphocytes % 5.8 % (21.2-54.2); Mean Corpuscular HGB Conc 33.9 GM/DL (32-36); Mean Corpuscular Hemoglobin 30 PG (27-34); Mean Corpuscular Volume 88.3 FL (87-102); Mean Platelet Volume 10.8 FL (9.6-12.0); Monocytes # 0.8 10*3/uL (0.11-0.8); Monocytes % 6.4 % (1.7-12.7); Neutrophils % 83.7 % (38.7-73.9); Platelet Count 374 T/CUMM (130-400); Red Blood Count 3.17 MC/CUMM (3.8-5.5); Red Cell Distribution Width 15.4 % (9.3-17.3)
[2018-03-28 07:50] LABS: Calcium 8.5 MG/DL (8.5-10.1); Osmolality,Calculated 298.8 MOS/KG (273-304); Potassium 3.3 MMOL/L (3.5-5.1)
[2018-03-28] MEDS: INSULIN LISPRO 100 UNIT/ML SUBCUT SCH ×4 (08:18→20:51)
[2018-03-28] MEDS: CLOPIDOGREL 75 MG TABLET PO SCH (10:25)
[2018-03-28] MEDS: FERROUS SULFATE 325 MG TABLET PO SCH (10:25)
[2018-03-28] MEDS: FINASTERIDE 5 MG TABLET PO SCH (10:25)
[2018-03-28] MEDS: CARVEDILOL 6.25 MG TABLET PO SCH ×2 (10:25→17:04)
[2018-03-28] MEDS: ASPIRIN EC 81 MG TABLET PO SCH (10:25)
[2018-03-28] MEDS: CARBIDOPA/LEVODOPA 25-100 MG TABLET PO SCH ×3 (10:25→17:05)
[2018-03-28] MEDS: FUROSEMIDE 40 MG/4 ML VIAL IV SCH ×2 (10:25→17:04)
[2018-03-28] MEDS: MEMANTINE 10 MG TABLET PO SCH (10:26)
[2018-03-28] MEDS: LISINOPRIL 10 MG TABLET PO SCH ×2 (10:26→20:48)
[2018-03-28] MEDS: POLYETHYLENE GLYCOL POWDER 17 GM PACK PO SCH (10:26)
[2018-03-28] MEDS: PANTOPRAZOLE 40 MG TABLET PO SCH ×2 (10:28→20:48)
[2018-03-28] MEDS: CHOLECALCIFEROL 1,000 UNIT TABLET PO SCH (10:28)
[2018-03-28] MEDS: MELATONIN 3 MG TABLET PO SCH (20:48)
[2018-03-28] MEDS: ENOXAPARIN 40 MG/0.4 ML SYRINGE SUBCUT SCH (20:51)
[2018-03-29] MEDS: ALBUTEROL/IPRATROPIUM 3 ML NEB RESP TX SCH ×4 (01:08→20:31)
[2018-03-29] MEDS: FUROSEMIDE 40 MG/4 ML VIAL IV SCH ×2 (09:21→15:43)
[2018-03-29] MEDS: CARBIDOPA/LEVODOPA 25-100 MG TABLET PO SCH ×3 (09:22→17:18)
[2018-03-29] MEDS: LISINOPRIL 10 MG TABLET PO SCH ×2 (09:23→21:30)
[2018-03-29] MEDS: FINASTERIDE 5 MG TABLET PO SCH (09:23)
[2018-03-29] MEDS: FERROUS SULFATE 325 MG TABLET PO SCH (09:23)
[2018-03-29] MEDS: CLOPIDOGREL 75 MG TABLET PO SCH (09:23)
[2018-03-29] MEDS: INSULIN LISPRO 100 UNIT/ML SUBCUT SCH ×4 (09:23→21:31)
[2018-03-29] MEDS: ASPIRIN EC 81 MG TABLET PO SCH (09:23)
[2018-03-29] MEDS: PANTOPRAZOLE 40 MG TABLET PO SCH ×2 (09:23→21:30)
[2018-03-29] MEDS: CARVEDILOL 6.25 MG TABLET PO SCH ×2 (09:23→17:17)
[2018-03-29] MEDS: CHOLECALCIFEROL 1,000 UNIT TABLET PO SCH (09:23)
[2018-03-29] MEDS: POLYETHYLENE GLYCOL POWDER 17 GM PACK PO SCH (09:24)
[2018-03-29 11:50] LABS: Basophils % 0.3 % (0.0-0.8); Eosinophils # 0.6 10*3/uL (0.0-0.87); Eosinophils % 5.6 % (0.00-10.9); Hematocrit 28.5 VOL% (42.0-52.0); Immature Granulocytes % 0.6 %; Immature Granulocytes Absolute 0.07 #; Lymphocytes # 0.8 10*3/uL (1.4-4.0); Lymphocytes % 6.8 % (21.2-54.2); Mean Corpuscular HGB Conc 35.1 GM/DL (32-36); Mean Corpuscular Hemoglobin 31 PG (27-34); Mean Corpuscular Volume 86.9 FL (87-102); Mean Platelet Volume 10.7 FL (9.6-12.0); Monocytes # 0.5 10*3/uL (0.11-0.8); Monocytes % 4.6 % (1.7-12.7); Neutrophils # 9.2 10*3/uL (1.4-7.4); Neutrophils % 82.1 % (38.7-73.9); Platelet Count 464 T/CUMM (130-400); Red Blood Count 3.28 MC/CUMM (3.8-5.5); Red Cell Distribution Width 15.7 % (9.3-17.3); White Blood Count 11.3 T/CUMM (4-12)
[2018-03-29 12:14] LABS: Calcium 8.4 MG/DL (8.5-10.1)
[2018-03-29] MEDS: PHENOL 1.4% THROAT SPRAY 177 ML BOTTLE PO PRN ×2 (13:46→15:44)
[2018-03-29] MEDS: ENOXAPARIN 40 MG/0.4 ML SYRINGE SUBCUT SCH (21:30)
[2018-03-29] MEDS: MELATONIN 3 MG TABLET PO SCH (21:30)
[2018-03-29] MEDS: LEVOFLOXACIN INJ 750 MG in PREMIX 1 EACH IV SCH (21:31)
[2018-03-30] MEDS: ALBUTEROL/IPRATROPIUM 3 ML NEB RESP TX SCH ×4 (01:07→18:58)
[2018-03-30 07:19] LABS: Basophils # 0.1 10*3/uL (0.0-0.2); Basophils % 0.4 % (0.0-0.8); Eosinophils # 0.8 10*3/uL (0.0-0.87); Eosinophils % 6.8 % (0.00-10.9); Hematocrit 29.9 VOL% (42.0-52.0); Immature Granulocytes Absolute 0.11 #; Lymphocytes # 1.2 10*3/uL (1.4-4.0); Lymphocytes % 10.2 % (21.2-54.2); Mean Corpuscular HGB Conc 33.4 GM/DL (32-36); Mean Corpuscular Hemoglobin 30 PG (27-34); Mean Corpuscular Volume 89.5 FL (87-102); Mean Platelet Volume 10.3 FL (9.6-12.0); Monocytes # 0.8 10*3/uL (0.11-0.8); Monocytes % 6.8 % (1.7-12.7); Neutrophils # 8.5 10*3/uL (1.4-7.4); Neutrophils % 74.8 % (38.7-73.9); Platelet Count 534 T/CUMM (130-400); Red Blood Count 3.34 MC/CUMM (3.8-5.5); Red Cell Distribution Width 15.7 % (9.3-17.3); White Blood Count 11.4 T/CUMM (4-12)
[2018-03-30 07:48] LABS: Osmolality,Calculated 305.6 MOS/KG (273-304); Potassium 2.8 MMOL/L (3.5-5.1)
[2018-03-30] MEDS: INSULIN LISPRO 100 UNIT/ML SUBCUT SCH ×4 (08:48→21:04)
[2018-03-30] MEDS: CHOLECALCIFEROL 1,000 UNIT TABLET PO SCH (08:55)
[2018-03-30] MEDS: PANTOPRAZOLE 40 MG TABLET PO SCH ×2 (08:55→21:03)
[2018-03-30] MEDS: FERROUS SULFATE 325 MG TABLET PO SCH (08:55)
[2018-03-30] MEDS: FINASTERIDE 5 MG TABLET PO SCH (08:55)
[2018-03-30] MEDS: CLOPIDOGREL 75 MG TABLET PO SCH (08:55)
[2018-03-30] MEDS: LISINOPRIL 10 MG TABLET PO SCH ×2 (08:55→21:04)
[2018-03-30] MEDS: ASPIRIN EC 81 MG TABLET PO SCH (08:55)
[2018-03-30] MEDS: FUROSEMIDE 40 MG/4 ML VIAL IV SCH (08:55)
[2018-03-30] MEDS: POLYETHYLENE GLYCOL POWDER 17 GM PACK PO SCH (08:55)
[2018-03-30] MEDS: CARVEDILOL 6.25 MG TABLET PO SCH ×2 (08:55→16:13)
[2018-03-30] MEDS: CARBIDOPA/LEVODOPA 25-100 MG TABLET PO SCH ×3 (08:55→16:14)
[2018-03-30] MEDS: PHENOL 1.4% THROAT SPRAY 177 ML BOTTLE PO PRN (08:56)
[2018-03-30] MEDS: POTASSIUM CHLORIDE 20 MEQ TABLET PO PRN ×4 (14:01→20:55)
[2018-03-30] MEDS ORDERED: POTASSIUM CHLORIDE 20 MEQ PACK PO ONE (14:54)
[2018-03-30] MEDS: ENOXAPARIN 40 MG/0.4 ML SYRINGE SUBCUT SCH (21:03)
[2018-03-30] MEDS: ROSUVASTATIN 10 MG TABLET PO SCH (21:03)
[2018-03-30] MEDS: MELATONIN 3 MG TABLET PO SCH (21:04)
[2018-03-31] MEDS: ALBUTEROL/IPRATROPIUM 3 ML NEB RESP TX SCH ×4 (00:32→19:26)
[2018-03-31] MEDS: INSULIN LISPRO 100 UNIT/ML SUBCUT SCH ×4 (08:00→21:32)
[2018-03-31 08:24] LABS: Calcium 9.2 MG/DL (8.5-10.1); Osmolality,Calculated 303.7 MOS/KG (273-304); Potassium 3.8 MMOL/L (3.5-5.1)
[2018-03-31 08:39] LABS: Basophils # 0.1 10*3/uL (0.0-0.2); Basophils % 0.4 % (0.0-0.8); Eosinophils # 0.7 10*3/uL (0.0-0.87); Eosinophils % 6.4 % (0.00-10.9); Hematocrit 29.9 VOL% (42.0-52.0); Hemoglobin 10.3 GM/DL (14.0-18.0); Immature Granulocytes % 1.2 %; Immature Granulocytes Absolute 0.14 #; Lymphocytes # 1.2 10*3/uL (1.4-4.0); Lymphocytes % 10.5 % (21.2-54.2); Mean Corpuscular HGB Conc 34.4 GM/DL (32-36); Mean Corpuscular Hemoglobin 31 PG (27-34); Mean Corpuscular Volume 89.3 FL (87-102); Monocytes # 0.7 10*3/uL (0.11-0.8); Monocytes % 6.1 % (1.7-12.7); Neutrophils # 8.5 10*3/uL (1.4-7.4); Neutrophils % 75.4 % (38.7-73.9); Platelet Count 604 T/CUMM (130-400); Red Blood Count 3.35 MC/CUMM (3.8-5.5); Red Cell Distribution Width 15.8 % (9.3-17.3); White Blood Count 11.3 T/CUMM (4-12)
[2018-03-31] MEDS: POLYETHYLENE GLYCOL POWDER 17 GM PACK PO SCH (10:23)
[2018-03-31] MEDS: CARBIDOPA/LEVODOPA 25-100 MG TABLET PO SCH ×3 (10:24→18:23)
[2018-03-31] MEDS: amLODIPine 5 MG TABLET PO SCH (10:24)
[2018-03-31] MEDS: CARVEDILOL 6.25 MG TABLET PO SCH ×2 (10:24→17:48)
[2018-03-31] MEDS: LISINOPRIL 10 MG TABLET PO SCH ×2 (10:26→21:32)
[2018-03-31] MEDS: FUROSEMIDE 40 MG TABLET PO SCH (10:27)
[2018-03-31] MEDS: FINASTERIDE 5 MG TABLET PO SCH (10:27)
[2018-03-31] MEDS: ASPIRIN EC 81 MG TABLET PO SCH (10:29)
[2018-03-31] MEDS: CLOPIDOGREL 75 MG TABLET PO SCH (10:29)
[2018-03-31] MEDS: CHOLECALCIFEROL 1,000 UNIT TABLET PO SCH (10:29)
[2018-03-31] MEDS: PANTOPRAZOLE 40 MG TABLET PO SCH ×2 (10:29→21:32)
[2018-03-31] MEDS: FERROUS SULFATE 325 MG TABLET PO SCH (10:30)
[2018-03-31] MEDS: ENOXAPARIN 40 MG/0.4 ML SYRINGE SUBCUT SCH (14:30)
[2018-03-31] MEDS: ROSUVASTATIN 10 MG TABLET PO SCH (21:32)
[2018-03-31] MEDS: MELATONIN 3 MG TABLET PO SCH (21:32)
[2018-03-31] MEDS: QUEtiapine 25 MG TABLET PO SCH (21:32)
[2018-03-31] MEDS: LEVOFLOXACIN INJ 750 MG in PREMIX 1 EACH IV SCH (21:44)
[2018-04-01] MEDS: ALBUTEROL/IPRATROPIUM 3 ML NEB RESP TX SCH ×4 (01:21→19:10)
[2018-04-01 06:48] LABS: Basophils # 0.1 10*3/uL (0.0-0.2); Basophils % 0.6 % (0.0-0.8); Eosinophils # 0.7 10*3/uL (0.0-0.87); Eosinophils % 5.6 % (0.00-10.9); Hemoglobin 10.1 GM/DL (14.0-18.0); Immature Granulocytes % 1.5 %; Immature Granulocytes Absolute 0.18 #; Lymphocytes # 1.1 10*3/uL (1.4-4.0); Lymphocytes % 8.6 % (21.2-54.2); Mean Corpuscular HGB Conc 31.6 GM/DL (32-36); Mean Corpuscular Hemoglobin 29 PG (27-34); Mean Platelet Volume 10.2 FL (9.6-12.0); Monocytes # 0.7 10*3/uL (0.11-0.8); Neutrophils # 9.5 10*3/uL (1.4-7.4); Neutrophils % 77.7 % (38.7-73.9); Platelet Count 659 T/CUMM (130-400); Red Blood Count 3.48 MC/CUMM (3.8-5.5); Red Cell Distribution Width 15.7 % (9.3-17.3); White Blood Count 12.3 T/CUMM (4-12)
[2018-04-01 07:24] LABS: Calcium 9.5 MG/DL (8.5-10.1); Osmolality,Calculated 302.6 MOS/KG (273-304); Potassium 3.6 MMOL/L (3.5-5.1)
[2018-04-01 11:28] LABS: ABG Base Excess 7.9 MMOL/L (-2.5-2.5); ABG HCO3 31.7 MMOL/L (20-26); ABG Oxygen Saturation 96.3 % (95-100); ABG PCO2 34.8 MM HG (35-48); ABG PH 7.552 (7.35-7.45); ABG PO2 80.7 MM HG (80-95); ABG TCO2 27.4 MMOL/L (23-27); Allen Test Positive
[2018-04-01] MEDS ORDERED: TUBERCULIN SKIN TEST 0.1 ML SYRINGE INTRADERM ONE (11:44)
[2018-04-01] MEDS: INSULIN LISPRO 100 UNIT/ML SUBCUT SCH ×4 (13:09→22:02)
[2018-04-01] MEDS: CARBIDOPA/LEVODOPA 25-100 MG TABLET PO SCH ×3 (13:09→18:49)
[2018-04-01] MEDS: CARVEDILOL 6.25 MG TABLET PO SCH ×2 (13:09→18:49)
[2018-04-01] MEDS: FUROSEMIDE 40 MG TABLET PO SCH (13:10)
[2018-04-01] MEDS: amLODIPine 5 MG TABLET PO SCH (13:10)
[2018-04-01] MEDS: CLOPIDOGREL 75 MG TABLET PO SCH (13:10)
[2018-04-01] MEDS: FERROUS SULFATE 325 MG TABLET PO SCH (13:10)
[2018-04-01] MEDS: POLYETHYLENE GLYCOL POWDER 17 GM PACK PO SCH (13:10)
[2018-04-01] MEDS: LISINOPRIL 10 MG TABLET PO SCH ×2 (13:10→22:02)
[2018-04-01] MEDS: ASPIRIN EC 81 MG TABLET PO SCH (13:10)
[2018-04-01] MEDS: FINASTERIDE 5 MG TABLET PO SCH (13:11)
[2018-04-01] MEDS: CHOLECALCIFEROL 1,000 UNIT TABLET PO SCH (13:11)
[2018-04-01] MEDS: QUEtiapine 25 MG TABLET PO SCH (13:11)
[2018-04-01] MEDS: PANTOPRAZOLE 40 MG TABLET PO SCH ×2 (13:11→22:03)
[2018-04-01] MEDS: SODIUM CHLORIDE 0.45% 1,000 ML IV SCH (13:17)
[2018-04-01] MEDS ORDERED: HALOPERIDOL 5 MG/ML AMP IM ONE (14:43)
[2018-04-01] MEDS ORDERED: LORazepam 2 MG/1 ML VIAL IM ONE (14:44)
[2018-04-01] MEDS: ENOXAPARIN 40 MG/0.4 ML SYRINGE SUBCUT SCH (17:06)
[2018-04-01 18:39] LABS: Apearance,Urine CLEAR (Clear); Bilirubin,Urine Negative (Negative); Blood, Urine Small mg/dL (Negative); Glucose,Urine (UA) Negative (Negative); Hyaline Casts,Urine 2 /LPF (0-3); Ketones,Urine Negative (Negative); Nitrite,Urine Negative (Negative); Protein,Urine Negative; RBC,Urine 16 /HPF (0-4); Urine Color Yellow (Yellow); Urine Specific Gravity 1.016 (1.001-1.035); Urine Urobilinogen < 2.0 EU/DL (0.2-1.0); WBC,Urine 4 /HPF (0-6)
[2018-04-01] MEDS: ROSUVASTATIN 10 MG TABLET PO SCH (22:02)
[2018-04-01] MEDS: MELATONIN 3 MG TABLET PO SCH (22:02)
[2018-04-02] MEDS: ALBUTEROL/IPRATROPIUM 3 ML NEB RESP TX SCH ×4 (00:09→19:26)
[2018-04-02] MEDS: SODIUM CHLORIDE 0.45% 1,000 ML IV SCH (06:00)
[2018-04-02 07:24] LABS: Basophils # 0.1 10*3/uL (0.0-0.2); Basophils % 0.7 % (0.0-0.8); Eosinophils # 0.5 10*3/uL (0.0-0.87); Eosinophils % 5.1 % (0.00-10.9); Hematocrit 31.1 VOL% (42.0-52.0); Hemoglobin 10.1 GM/DL (14.0-18.0); Immature Granulocytes % 2.2 %; Immature Granulocytes Absolute 0.23 #; Lymphocytes # 1.1 10*3/uL (1.4-4.0); Lymphocytes % 9.9 % (21.2-54.2); Mean Corpuscular HGB Conc 32.5 GM/DL (32-36); Mean Corpuscular Hemoglobin 30 PG (27-34); Mean Corpuscular Volume 91.2 FL (87-102); Mean Platelet Volume 10.1 FL (9.6-12.0); Monocytes # 0.7 10*3/uL (0.11-0.8); Monocytes % 6.4 % (1.7-12.7); Neutrophils % 75.7 % (38.7-73.9); Platelet Count 654 T/CUMM (130-400); Red Blood Count 3.41 MC/CUMM (3.8-5.5); Red Cell Distribution Width 15.7 % (9.3-17.3); White Blood Count 10.6 T/CUMM (4-12)
[2018-04-02 07:58] LABS: Calcium 8.5 MG/DL (8.5-10.1); Osmolality,Calculated 297.6 MOS/KG (273-304); Potassium 3.6 MMOL/L (3.5-5.1)
[2018-04-02] MEDS ORDERED: cloNIDine 0.1 MG/24 HR PATCH TRANSDERM SCH (09:00)
[2018-04-02] MEDS: CARBIDOPA/LEVODOPA 25-100 MG TABLET PO SCH ×3 (09:53→17:57)
[2018-04-02] MEDS: ASPIRIN EC 81 MG TABLET PO SCH (09:53)
[2018-04-02] MEDS: ENOXAPARIN 40 MG/0.4 ML SYRINGE SUBCUT SCH (09:53)
[2018-04-02] MEDS: CARVEDILOL 6.25 MG TABLET PO SCH ×2 (09:53→17:57)
[2018-04-02] MEDS: PANTOPRAZOLE 40 MG TABLET PO SCH ×2 (09:54→21:34)
[2018-04-02] MEDS: FERROUS SULFATE 325 MG TABLET PO SCH (09:54)
[2018-04-02] MEDS: amLODIPine 5 MG TABLET PO SCH (09:54)
[2018-04-02] MEDS: POLYETHYLENE GLYCOL POWDER 17 GM PACK PO SCH (09:54)
[2018-04-02] MEDS: CHOLECALCIFEROL 1,000 UNIT TABLET PO SCH (09:54)
[2018-04-02] MEDS: FINASTERIDE 5 MG TABLET PO SCH (09:54)
[2018-04-02] MEDS: LISINOPRIL 10 MG TABLET PO SCH ×2 (09:54→21:34)
[2018-04-02] MEDS: FUROSEMIDE 40 MG TABLET PO SCH (09:54)
[2018-04-02] MEDS: INSULIN LISPRO 100 UNIT/ML SUBCUT SCH ×4 (09:55→21:33)
[2018-04-02] MEDS ORDERED: HALOPERIDOL 5 MG/ML AMP IM ONE (18:02)
[2018-04-02] MEDS ORDERED: LORazepam 2 MG/1 ML VIAL IM ONE (18:03)
[2018-04-02] MEDS: ROSUVASTATIN 10 MG TABLET PO SCH (21:33)
[2018-04-02] MEDS: MELATONIN 3 MG TABLET PO SCH (21:33)
[2018-04-02] MEDS: LEVOFLOXACIN INJ 750 MG in PREMIX 1 EACH IV SCH (21:53)
[2018-04-03] MEDS: SODIUM CHLORIDE 0.45% 1,000 ML IV SCH ×2 (00:13→21:52)
[2018-04-03] MEDS: ALBUTEROL/IPRATROPIUM 3 ML NEB RESP TX SCH ×4 (00:35→20:11)
[2018-04-03] MEDS: INSULIN LISPRO 100 UNIT/ML SUBCUT SCH ×4 (10:03→21:56)
[2018-04-03] MEDS: POLYETHYLENE GLYCOL POWDER 17 GM PACK PO SCH (10:04)
[2018-04-03] MEDS: FERROUS SULFATE 325 MG TABLET PO SCH (10:04)
[2018-04-03] MEDS: ASPIRIN EC 81 MG TABLET PO SCH (10:04)
[2018-04-03] MEDS: CARBIDOPA/LEVODOPA 25-100 MG TABLET PO SCH ×3 (10:04→18:15)
[2018-04-03] MEDS: CARVEDILOL 6.25 MG TABLET PO SCH ×2 (10:04→18:15)
[2018-04-03] MEDS: FUROSEMIDE 40 MG TABLET PO SCH (10:04)
[2018-04-03] MEDS: LISINOPRIL 10 MG TABLET PO SCH ×2 (10:05→20:08)
[2018-04-03] MEDS: FINASTERIDE 5 MG TABLET PO SCH (10:05)
[2018-04-03] MEDS: PANTOPRAZOLE 40 MG TABLET PO SCH ×2 (10:05→20:08)
[2018-04-03] MEDS: amLODIPine 5 MG TABLET PO SCH (10:05)
[2018-04-03] MEDS: CHOLECALCIFEROL 1,000 UNIT TABLET PO SCH (10:05)
[2018-04-03] MEDS ORDERED: POLYVINYL ALCOHOL 1.4% OPH SOLN 15 ML BOTTLE BOTH EYES PRN (14:23)
[2018-04-03] MEDS ORDERED: hydrALAZINE 20 MG/1 ML VIAL IV PRN (20:03)
[2018-04-03] MEDS ORDERED: diphenhydrAMINE 50 MG/1 ML VIAL IV ONE (20:03)
[2018-04-03] MEDS: ROSUVASTATIN 10 MG TABLET PO SCH (20:08)
[2018-04-03] MEDS: MELATONIN 3 MG TABLET PO SCH (20:08)
[2018-04-04] MEDS: ALBUTEROL/IPRATROPIUM 3 ML NEB RESP TX SCH ×4 (00:26→19:05)
[2018-04-04 08:06] LABS: Basophils # 0.1 10*3/uL (0.0-0.2); Basophils % 0.5 % (0.0-0.8); Eosinophils # 0.4 10*3/uL (0.0-0.87); Eosinophils % 3.3 % (0.00-10.9); Hemoglobin 10.6 GM/DL (14.0-18.0); Immature Granulocytes % 1.2 %; Immature Granulocytes Absolute 0.13 #; Lymphocytes # 1.4 10*3/uL (1.4-4.0); Lymphocytes % 13.1 % (21.2-54.2); Mean Corpuscular HGB Conc 32.1 GM/DL (32-36); Mean Corpuscular Hemoglobin 30 PG (27-34); Mean Corpuscular Volume 91.9 FL (87-102); Mean Platelet Volume 9.8 FL (9.6-12.0); Monocytes # 0.7 10*3/uL (0.11-0.8); Monocytes % 6.2 % (1.7-12.7); Neutrophils # 8.1 10*3/uL (1.4-7.4); Neutrophils % 75.7 % (38.7-73.9); Platelet Count 642 T/CUMM (130-400); Red Blood Count 3.59 MC/CUMM (3.8-5.5); Red Cell Distribution Width 15.3 % (9.3-17.3); White Blood Count 10.7 T/CUMM (4-12)
[2018-04-04 08:13] LABS: INR 1.2; PT Patient Result 12.3 SECS
[2018-04-04] MEDS: INSULIN LISPRO 100 UNIT/ML SUBCUT SCH ×4 (09:58→20:57)
[2018-04-04] MEDS: CARVEDILOL 6.25 MG TABLET PO SCH ×2 (09:59→19:16)
[2018-04-04] MEDS: CARBIDOPA/LEVODOPA 25-100 MG TABLET PO SCH ×3 (09:59→19:19)
[2018-04-04] MEDS: FUROSEMIDE 40 MG TABLET PO SCH (09:59)
[2018-04-04] MEDS: LISINOPRIL 10 MG TABLET PO SCH ×2 (09:59→21:26)
[2018-04-04] MEDS: POLYETHYLENE GLYCOL POWDER 17 GM PACK PO SCH (09:59)
[2018-04-04] MEDS: ASPIRIN EC 81 MG TABLET PO SCH (09:59)
[2018-04-04] MEDS: amLODIPine 5 MG TABLET PO SCH (09:59)
[2018-04-04] MEDS: FERROUS SULFATE 325 MG TABLET PO SCH (09:59)
[2018-04-04] MEDS: PANTOPRAZOLE 40 MG TABLET PO SCH ×2 (10:00→21:26)
[2018-04-04] MEDS: CHOLECALCIFEROL 1,000 UNIT TABLET PO SCH (10:00)
[2018-04-04] MEDS: FINASTERIDE 5 MG TABLET PO SCH (10:00)
[2018-04-04] MEDS ORDERED: LIDOCAINE 1% 5 ML VIAL ONE (11:38)
[2018-04-04] MEDS ORDERED: PROPOFOL 200 MG/20 ML VIAL IV ONE (11:38)
[2018-04-04] MEDS: SODIUM CHLORIDE 0.45% 1,000 ML IV SCH (20:58)
[2018-04-04] MEDS: LEVOFLOXACIN INJ 750 MG in PREMIX 1 EACH IV SCH (20:59)
[2018-04-04] MEDS: ROSUVASTATIN 10 MG TABLET PO SCH (21:26)
[2018-04-04] MEDS: MELATONIN 3 MG TABLET PO SCH (21:26)
[2018-04-04] MEDS: QUEtiapine 100 MG TABLET PO SCH (22:32)
[2018-04-05] MEDS: ALBUTEROL/IPRATROPIUM 3 ML NEB RESP TX SCH ×4 (00:15→19:17)
[2018-04-05] MEDS: INSULIN LISPRO 100 UNIT/ML SUBCUT SCH ×4 (07:30→20:14)
[2018-04-05] MEDS: POLYETHYLENE GLYCOL POWDER 17 GM PACK PO SCH (09:00)
[2018-04-05] MEDS: PANTOPRAZOLE 40 MG TABLET PO SCH (11:00)
[2018-04-05] MEDS: FINASTERIDE 5 MG TABLET PO SCH (11:04)
[2018-04-05] MEDS: LISINOPRIL 10 MG TABLET PO SCH ×2 (11:04→21:44)
[2018-04-05] MEDS: CARBIDOPA/LEVODOPA 25-100 MG TABLET PO SCH ×3 (11:05→18:47)
[2018-04-05] MEDS: amLODIPine 5 MG TABLET PO SCH (11:05)
[2018-04-05] MEDS: FUROSEMIDE 40 MG TABLET PO SCH (11:05)
[2018-04-05] MEDS: CARVEDILOL 6.25 MG TABLET PO SCH ×2 (11:05→18:47)
[2018-04-05] MEDS: FERROUS SULFATE 325 MG TABLET PO SCH (11:05)
[2018-04-05] MEDS ORDERED: POTASSIUM CHLORIDE 20 MEQ/15 ML UDCUP PO PRN (12:00)
[2018-04-05] MEDS: SODIUM CHLORIDE 0.45% 1,000 ML IV SCH (18:37)
[2018-04-05] MEDS: ASPIRIN EC 81 MG TABLET PO SCH (18:46)
[2018-04-05] MEDS: CLOPIDOGREL 75 MG TABLET PO SCH (18:47)
[2018-04-05] MEDS: CHOLECALCIFEROL 1,000 UNIT TABLET PO SCH (18:48)
[2018-04-05] MEDS: MELATONIN 3 MG TABLET PO SCH (21:42)
[2018-04-05] MEDS: ROSUVASTATIN 10 MG TABLET PO SCH (21:43)
[2018-04-05] MEDS: LANSOPRAZOLE ODT 30 MG TABLET PO SCH (21:55)
[2018-04-05] MEDS: QUEtiapine 100 MG TABLET PO SCH (21:55)
[2018-04-06] MEDS: ALBUTEROL/IPRATROPIUM 3 ML NEB RESP TX SCH ×4 (00:28→19:13)
[2018-04-06 07:25] LABS: Basophils # 0.1 10*3/uL (0.0-0.2); Basophils % 0.6 % (0.0-0.8); Eosinophils # 0.3 10*3/uL (0.0-0.87); Eosinophils % 3.7 % (0.00-10.9); Hematocrit 30.3 VOL% (42.0-52.0); Hemoglobin 10.3 GM/DL (14.0-18.0); Immature Granulocytes % 1.6 %; Immature Granulocytes Absolute 0.14 #; Lymphocytes # 1.1 10*3/uL (1.4-4.0); Lymphocytes % 13.1 % (21.2-54.2); Mean Corpuscular Hemoglobin 30 PG (27-34); Mean Corpuscular Volume 88.9 FL (87-102); Mean Platelet Volume 9.7 FL (9.6-12.0); Monocytes # 0.6 10*3/uL (0.11-0.8); Monocytes % 6.8 % (1.7-12.7); Neutrophils # 6.3 10*3/uL (1.4-7.4); Neutrophils % 74.2 % (38.7-73.9); Platelet Count 502 T/CUMM (130-400); Red Blood Count 3.41 MC/CUMM (3.8-5.5); Red Cell Distribution Width 15.3 % (9.3-17.3); White Blood Count 8.6 T/CUMM (4-12)
[2018-04-06 07:48] LABS: Calcium 7.8 MG/DL (8.5-10.1); Osmolality,Calculated 285.4 MOS/KG (273-304); Potassium 3.3 MMOL/L (3.5-5.1)
[2018-04-06] MEDS: amLODIPine 5 MG TABLET PO SCH (08:53)
[2018-04-06] MEDS: CARBIDOPA/LEVODOPA 25-100 MG TABLET PO SCH ×4 (08:54→21:21)
[2018-04-06] MEDS: CARVEDILOL 6.25 MG TABLET PO SCH ×2 (08:54→18:29)
[2018-04-06] MEDS: CLOPIDOGREL 75 MG TABLET PO SCH (08:54)
[2018-04-06] MEDS: LANSOPRAZOLE ODT 30 MG TABLET PO SCH ×2 (08:54→21:20)
[2018-04-06] MEDS: ASPIRIN EC 81 MG TABLET PO SCH (08:54)
[2018-04-06] MEDS: LISINOPRIL 10 MG TABLET PO SCH ×2 (08:54→21:21)
[2018-04-06] MEDS: FUROSEMIDE 40 MG/5 ML UDCUP PO SCH (08:54)
[2018-04-06] MEDS: CHOLECALCIFEROL 1,000 UNIT TABLET PO SCH (08:54)
[2018-04-06] MEDS: FERROUS SULFATE 300 MG/5 ML UDCUP PO SCH (08:55)
[2018-04-06] MEDS: FINASTERIDE 5 MG TABLET PO SCH (08:59)
[2018-04-06] MEDS: ENOXAPARIN 40 MG/0.4 ML SYRINGE SUBCUT SCH (09:00)
[2018-04-06] MEDS: INSULIN LISPRO 100 UNIT/ML SUBCUT SCH ×4 (10:41→20:06)
[2018-04-06] MEDS: POLYETHYLENE GLYCOL POWDER 17 GM PACK PO SCH (10:42)
[2018-04-06] MEDS: SODIUM CHLORIDE 0.45% 1,000 ML IV SCH (13:01)
[2018-04-06] MEDS: POTASSIUM CHLORIDE RIDER 10 MEQ in PREMIX 1 EACH IV SCH ×4 (13:02→19:57)
[2018-04-06] MEDS ORDERED: POTASSIUM CHLORIDE RIDER 10 MEQ in PREMIX 1 EACH IV SCH (20:00)
[2018-04-06] MEDS: ROSUVASTATIN 10 MG TABLET PO SCH (21:20)
[2018-04-06] MEDS: MELATONIN 3 MG TABLET PO SCH (21:21)
[2018-04-06] MEDS: QUEtiapine 100 MG TABLET PO SCH (21:21)
[2018-04-06] MEDS: LEVOFLOXACIN INJ 750 MG in PREMIX 1 EACH IV SCH (22:07)
[2018-04-07] MEDS: ALBUTEROL/IPRATROPIUM 3 ML NEB RESP TX SCH ×3 (00:42→14:07)
[2018-04-07 07:15] LABS: Calcium 8.2 MG/DL (8.5-10.1); Osmolality,Calculated 289.3 MOS/KG (273-304); Potassium 3.7 MMOL/L (3.5-5.1); Prealbumin 12.9 MG/DL (20-40)
[2018-04-07] MEDS: CLOPIDOGREL 75 MG TABLET PO SCH (09:35)
[2018-04-07] MEDS: CHOLECALCIFEROL 1,000 UNIT TABLET PO SCH (09:35)
[2018-04-07] MEDS: FERROUS SULFATE 300 MG/5 ML UDCUP PO SCH (09:35)
[2018-04-07] MEDS: LISINOPRIL 10 MG TABLET PO SCH (09:36)
[2018-04-07] MEDS: FINASTERIDE 5 MG TABLET PO SCH (09:36)
[2018-04-07] MEDS: CARVEDILOL 6.25 MG TABLET PO SCH (09:36)
[2018-04-07] MEDS: ASPIRIN EC 81 MG TABLET PO SCH (09:36)
[2018-04-07] MEDS: CARBIDOPA/LEVODOPA 25-100 MG TABLET PO SCH ×2 (09:36→13:58)
[2018-04-07] MEDS: LANSOPRAZOLE ODT 30 MG TABLET PO SCH (09:36)
[2018-04-07] MEDS: amLODIPine 5 MG TABLET PO SCH (09:36)
[2018-04-07] MEDS: INSULIN LISPRO 100 UNIT/ML SUBCUT SCH ×2 (09:37→12:35)
[2018-04-07] MEDS: POLYETHYLENE GLYCOL POWDER 17 GM PACK PO SCH (09:37)
[2018-04-07] MEDS: ENOXAPARIN 40 MG/0.4 ML SYRINGE SUBCUT SCH (09:37)
[2018-04-07] MEDS: FUROSEMIDE 40 MG/5 ML UDCUP PO SCH (09:49)
[2018-04-07 11:32] VITALS: BP 100/60
[2018-04-07] MEDS ORDERED: BISACODYL 10 MG SUPP RECTAL ONE (12:17)
[2018-04-07] MEDS: SODIUM CHLORIDE 0.45% 1,000 ML IV SCH (12:40)
== END 2018-04-07 14:45 | DRG 291 ==
LOC: EDUNIT# → N.ED 17:13 → N.EDINP 17:13 → SUATTDRO 19:13 → N.5E 19:44 → SUATTDRO 20:54
PROVIDERS: ADMIT Internal Medicine
PROC: EGDWPEG (ICD-10-PCS; 2018-04-04 11:05)